=== PATIENT | female | born 1990 | race American Indian/Alaskan Native ===

== ENCOUNTER 2017-07-15 19:57 | Observation (INO) | payer OTHER ==
--- NOTE | 2017-07-15 20:55 | ED PDOC ---
Arrival/HPI - History of Present Illness Time/Duration: 1 week Symptom Onset: Gradual Symptom Course: Worsening Activities at Onset: Light <Kaila Bui - Last Filed: 07/16/17 19:14> <ShayleeNimaHernanmu - Last Filed: 07/17/17 11:35> - General Chief Complaint: Syncope Time Seen by Provider: 07/15/17 20:54 - History of Present Illness Narrative History of Present Illness (Text): This is a 27 year old female with a Past medical history of Lupus and Asthma who presents complaining of dizziness and lightheadedness x 1 week. Patient cannot identify and inciting factors that could have caused the dizziness. She denies any trauma. Her dizziness has been getting progressively worse over the week. It is aggravated by physical activity and relieved by staying completely still and breathing. Patient hasn't used any modalities to control the dizziness. The dizziness is associated with seeing white spots, blurry vision, headaches and orbital pressure. She denies any tinnitus, ear pressure, ear discharge, recent URI. Patient also complains of heavy bleeding for the past 3 months. In the past 3 months her menstrual cramping has worsened. Her periods normally last 3-4 days and now last 5-7 days. FDLMP is Jun.13. Of note, patient recently diagnosed with bacterial vaginosis on 2016 which she was prescribed flagyl. She had a bad reaction to flagyl and had to stop it. She was then diagnosed with cystitis on the 2016. She was prescribed cephalaxin and had an adverse reaction (face swelling). She was then switched to Amoxicillin, she finished the regiment on 07/12/17. ROS POSITIVES: Headache, Dizziness, Lightheadedness, blurry vision, aura, b/l orbital pressure, mennorhagia, non-bloody/bilious vomiting NEGATIVES: Tinnitus, ear pressure, recent URI, chest pain, palpitations, shortness of breath, abdominal pain, changes in bowel habits or urinary symptoms. PMHx: Lupus, Asthma, Leukopenia PSHx: Denies Allergies: cephalaxin, clindamycin, ibuprofen, shellfish derived, flagyl. Social: Denies tobacco, alcohol, or illicit drug use. FamHx: Grandmother - Breast CA Meds: None (Kaila Bui) Pt was formerly on plaquenil, but has been noncompliant since she moved from [place], and desires beatrice be plugged back with a new rheutaologist/global security architect here locally. 07/15/17 23:48 (Rickey June) Past Medical History - Provider Review Nursing Documentation Reviewed: Yes - Pulmonary Hx Asthma: Yes - Endocrine/Metabolic Hx Systemic Lupus Erythematosus: Yes - Psychiatric Hx Substance Use: No - Anesthesia Hx Anesthesia: No Hx Anesthesia Reactions: No Hx Malignant Hyperthermia: No <Kaila Bui - Last Filed: 07/16/17 19:14> Family/Social History - Physician Review Nursing Documentation Reviewed: Yes Family/Social History: No Known Family HX Smoking Status: Never Smoked Hx Alcohol Use: No Hx Substance Use: No <Kaila Bui - Last Filed: 07/16/17 19:14> Allergies/Home Meds <Kaila Bui - Last Filed: 07/16/17 19:14> <Rickey June - Last Filed: 07/17/17 11:35> Allergies/Adverse Reactions: Allergies clindamycin Allergy (Verified 07/15/17 20:19) ANAPHYLAXIS ibuprofen Allergy (Verified 07/15/17 20:19) ANAPHYLAXIS metronidazole Allergy (Verified 07/16/17 04:52) SWELLING shellfish derived Allergy (Verified 07/15/17 20:19) ANAPHYLAXIS Home Medications: Home Meds Medication Instructions Recorded Confirmed No Known Home Med 07/15/17 07/15/17 Review of Systems - Physician Review All systems were reviewed & negative as marked: Yes (As per HPI) - Review of Systems Respiratory: Normal. absent: SOB Cardiovascular: Normal. absent: Chest Pain <Kaila Bui - Last Filed: 07/16/17 19:14> Physical Exam Vital Signs Reviewed: Yes Temperature: Afebrile Blood Pressure: Normal Pulse: Regular Respiratory Rate: Normal Appearance: Positive for: Ill-Appearing Pain Distress: None Mental Status: Positive for: Alert and Oriented X 3 - Systems Exam Head: Present: Atraumatic, Normocephalic, Other (No facial tenderness ). No: Tenderness, Contusion, Swelling, Ecchymosis, Abrasion, Laceration Pupils: Present: PERRL Extroacular Muscles: Present: EOMI Conjunctiva: Present: Normal. No: Injected, Icteric Ears: Present: Normal, NORMAL TM, Normal Canal. No: Erythema Mouth: Present: Moist Mucous Membranes Pharnyx: Present: Normal Nose (External): Present: Atraumatic Neck: Present: Normal Range of Motion. No: Meningeal Signs, JVD, Lymphadenopathy Respiratory/Chest: Present: Clear to Auscultation. No: Respiratory Distress, Wheezes, Rales, Rhonchi Cardiovascular: Present: Regular Rate and Rhythm, Normal S1, S2. No: Murmurs Abdomen: Present: Normal Bowel Sounds. No: Tenderness, Distention, Rebound, Guarding, Mass/Organomegaly Upper Extremity: Present: Normal Inspection Lower Extremity: Present: Normal Inspection Neurological: Present: GCS=15, CN II-XII Intact, Speech Normal, Other (Polk Hallpike maneuver NEGATIVE) Skin: Present: Warm, Dry, Other (Multiple Tattoos ) Lymphatic: No: Cervical Adenopathy Psychiatric: Present: Alert, Oriented x 3, Normal Mood <Kaila Bui - Last Filed: 07/16/17 19:14> Vital Signs Temp Pulse Resp BP Pulse Ox 07/16/17 01:00 98.3 F 70 19 108/82 100 07/15/17 23:00 98.3 F 87 17 111/82 100 07/15/17 21:58 98.2 F 80 17 120/82 100 07/15/17 19:58 99.3 F 75 18 114/81 100 Medical Decision Making - Lab Interpretations I have reviewed the lab results: Yes - EKG Interpretation Interpreted by ED Physician: Yes <Kaila Bui - Last Filed: 07/16/17 19:14> <Rickey June - Last Filed: 07/17/17 11:35> ED Course and Treatment: 27 year old female with Past medical history of Lupus, Asthma, and Leukopenia who presents with dizziness x 1 week. --CBC/CMP --Urinalysis --Urine Culture --NS Bolus --EKG --Orthostatic Vital signs Reassessment --CBC WBC-2.2 (Chronic) HgB - 11.7 --CMP - WNL --Urinalysis - Trace Ketones and 1.0 Urobilinogen --EKG - NSR w/ sinus arrhythmia and low Voltage QRS --Orthostatics: -Layin/71 -Sittin/73 -Standin/65 (Adibe,Raleke) pulses were never elevated past 20 bpm differential with standing, s/p ivf her dizziness is relieved however , her headache remains. Her headache is somwhat more left sided , more prominent around her eyes, associated with photophonophobia, and is familiar in its character. , and has been ongoing for days episodic in its intensity and no otc rx has been attmepted. Of note pt had to be shaken awoke in a taxi yesterday after Pt has been working all week with these symptoms of headache and dizziness. serial neurological exams are benign and without focality pt will be given a trial of reglan/benadryl and tylenol as weoll as more ivf and then reassessed for analgesic effect, and a head ct will be obtained . . 07/15/17 23:50 07/16/17 00:20 (Rickey June) - Lab Interpretations Microbiology Results: Microbiology Results 07/15/17 20:30 Urine Urine Culture - Final Gram Positive Cocci Lab Results: 07/15/17 20:30 07/15/17 20:30 Lab Results 07/15/17 20:30: Sodium 140, Potassium 3.9, Chloride 103, Carbon Dioxide 29, Anion Gap 12, BUN 16, Creatinine 0.9, Est GFR ( Amer) > 60, Est GFR (Non- Af Amer) > 60, Random Glucose 92, Calcium 9.2, Total Bilirubin 0.5, AST 29, ALT 17, Alkaline Phosphatase 47, Total Protein 7.9, Albumin 4.2, Globulin 3.7, Albumin/Globulin Ratio 1.2 07/15/17 20:30: Urine Color Yellow, Urine Appearance Clear, Urine pH 6.5, Ur Specific Driscoll 1.020, Urine Protein Negative, Urine Glucose (UA) Negative, Urine Ketones Trace H, Urine Blood Negative, Urine Nitrate Negative, Urine Bilirubin Negative, Urine Urobilinogen 1.0 H, Ur Leukocyte Esterase Negative 07/15/17 20:30: WBC 2.2 L*, RBC 4.17, Hgb 11.7 L, Hct 35.5 L, MCV 85.1, MCH 28.1 , MCHC 33.0, RDW 13.5, Plt Count 165, MPV 11.5 H, Gran % 26.5 L, Lymph % (Auto) 56.3 H, Major % (Auto) 14.9 H, Eos % (Auto) 1.8, Baso % (Auto) 0.5, Gran # 0.59 L , Lymph # 1.3, Major # 0.3, Eos # 0.0, Baso # 0.01 - RAD Interpretation Radiology Orders: 07/16/17 00:10 HEAD W/O CONTRAST [CT] Stat - Medication Orders Current Medication Orders: Discontinued Medications Acetaminophen (Tylenol 325mg Tab) 650 mg PO STAT STA Stop: 07/15/17 23:12 Last Admin: 07/15/17 23:45 Dose: 650 mg MAR Pain/Vitals Document 07/15/17 23:45 AB (Rec: 07/15/17 23:47 [id number] Pain Reassessment Is This A Pain ReAssessment? Yes Sleep Is patient sleeping during reassessment? No Presence of Pain Presence of Pain Yes Pain Scale Used Pain Scale Used Numeric Location Upper or Lower Upper Pain Location Body Office Systems Technology Instructor Description Constant Intensity 4 Scale Used Numeric Acetaminophen (Tylenol 325mg Tab) 650 mg PO Q6H PRN PRN Reason: Pain, Mild (1-3) Acetaminophen/Butalbital/Caffeine (Fioricet) 1 tab PO Q6H PRN PRN Reason: acute onset of headache Diphenhydramine HCl (Benadryl) 25 mg IVP STAT STA Stop: 07/15/17 23:18 Last Admin: 07/15/17 23:47 Dose: 25 mg IVP Administration Document 07/15/17 23:47 AB (Rec: 07/15/17 23:47 [id number] Charges for Administration # of IVP Administrations 1 Sodium Chloride (Sodium Chloride 0.9%) 1,000 mls @ 999 mls/hr IV .Q1H1M STA Stop: 07/15/17 22:31 Last Admin: 07/15/17 21:42 Dose: 999 mls/hr eMAR Start Stop Document 07/15/17 21:42 AB (Rec: 07/15/17 21:42 [id number] Intravenous Solution Start Date 07/15/17 Start Time 21:42 End Date 07/15/17 End time 22:42 Total Infusion Time 60 Metoclopramide HCl 20 mg/ (Sodium Chloride) 54 mls @ 108 mls/hr IVPB STAT STA Stop: 07/15/17 23:55 Last Admin: 07/15/17 23:47 Dose: 108 mls/hr eMAR Start Stop Document 07/15/17 23:47 AB (Rec: 07/15/17 23:47 AB [id number]) Intravenous Solution Start Date 07/15/17 Start Time 23:47 End Date 07/15/17 Sodium Chloride (Sodium Chloride 0.9%) 1,000 mls @ 100 mls/hr IV .Q10H STA Stop: 07/16/17 10:24 Last Admin: 07/16/17 00:54 Dose: 100 mls/hr eMAR Start Stop Document 07/16/17 00:54 AB (Rec: 07/16/17 00:54 AB [id number]) Intravenous Solution Start Date 07/16/17 Start Time 00:54 - PA / [employer] / Resident Statement / has reviewed & agrees with the documentation as recorded. <Rickey June - Last Filed: 07/17/17 11:35> Disposition/Present on Arrival - Present on Arrival Any Indicators Present on Arrival: No History of DVT/PE: No History of Uncontrolled Diabetes: No Urinary Catheter: No History of Decub. Ulcer: No History Surgical Site Infection Following: None - Disposition Have Diagnosis and Disposition been Completed?: Yes Disposition Time: 19:15 <Kaila Bui - Last Filed: 07/16/17 19:14> <Rickey June - Last Filed: 07/17/17 11:35> - Disposition Diagnosis: Migraine Disposition: HOSPITALIZED Condition: STABLE
[2017-07-15] MEDS ORDERED: Sodium Chloride 0.9% 1,000 ML IV STA (21:31)
[2017-07-15 21:42] LABS: PH,URINE 6.5 (4.7-8.0); URINE BILIRUBIN NEGATIVE (NEGATIVE); URINE BLOOD NEGATIVE (NEGATIVE); URINE GLUCOSE (UA) NEGATIVE (NEGATIVE); URINE KETONE TRACE mg/dL (NEGATIVE); URINE LEUKOCYTE ESTERASE NEGATIVE Leu/uL (NEGATIVE); URINE PROTEIN NEGATIVE mg/dL (<30 mg/dL)
[2017-07-15 21:44] LABS: URINE APPEARANCE CLEAR (CLEAR); URINE COLOR YELLOW (YELLOW)
[2017-07-15 21:51] LABS: BASO # 0.01 K/mm3 (0.0-2.0); BASO % 0.5 % (0.0-3.0); EOS % 1.8 % (1.5-5.0); GRAN # 0.59 (1.4-6.5); GRAN % 26.5 % (50.0-68.0); HEMATOCRIT 35.5 % (36.0-48.0); LYMPH # 1.3 (1.2-3.4); LYMPH % 56.3 % (22.0-35.0); MEAN CELL VOLUME 85.1 fl (80.0-105.0); MEAN CORPUSCULAR HEMOGLOBIN 28.1 pg (25.0-35.0); MEAN PLATELET VOLUME 11.5 fl (7.0-11.0); MONO # 0.3 (0.1-0.6); MONO % 14.9 % (1.0-6.0); RED CELL DISTRIBUTION WIDTH 13.5 % (11.5-14.5)
[2017-07-15 21:58] LABS: ALB/GLOB RATIO 1.2 (1.1-1.8); ALKALINE PHOSPHATASE 47 U/L (38-126); ALT/SGPT 17 U/L (7-56); AST/SGOT 29 U/L (14-36); BILIRUBIN,TOTAL 0.5 mg/dL (0.2-1.3); BLOOD UREA NITROGEN 16 mg/dL (7-21); CALCIUM 9.2 mg/dL (8.4-10.5); CARBON DIOXIDE 29 mmol/L (21-33); CHLORIDE 103 mmol/L (98-107); GFR AFRICAN-AMERICAN > 60; GLUCOSE,RANDOM 92 mg/dL (70-110); POTASSIUM 3.9 mmol/L (3.6-5.0); SODIUM 140 mmol/L (132-148); TOTAL PROTEIN 7.9 g/dL (5.8-8.3); WHITE BLOOD COUNT 2.2 10^3/ul (4.5-11.0)
[2017-07-15] MEDS ORDERED: DiphenhydrAMINE 50 mg/ml Inj IVP STA (23:17)
[2017-07-16] MEDS ORDERED: Sodium Chloride 0.9% 1,000 ML IV STA (00:25)
--- NOTE | 2017-07-16 00:52 | CT ---
EXAM: CT Head Without Intravenous Contrast EXAM DATE/TIME: 07/16/2017 12:10 AM CLINICAL HISTORY: 27 years old, female; Pain; Headache; Migraine; Aura effect not specified; Additional info: Mirgainaious headaceh x 1 wk, HX of lupus TECHNIQUE: Axial computed tomography images of the head/brain without intravenous contrast. All CT scans at this facility use one or more dose reduction techniques, viz.: automated exposure control; ma/kV adjustment per patient size (including targeted exams where dose is matched to indication; i.e. head); or iterative reconstruction technique. COMPARISON: There are no prior studies for comparison. FINDINGS: Brain: Ventricles are normal in size and configuration. There is no midline shift. There are no intra-axial or extra-axial mass lesions or areas of hemorrhage. There are no abnormal fluid collections. Rdz-white differentiation is maintained. Ventricles: See above. Bones/joints: Bones: Cranial vault is intact. Soft tissues: unremarkable Sinuses: There is no acute sinusitis. Ears and mastoids: Middle ears and mastoids are unremarkable Orbits: Orbital contents are unremarkable. IMPRESSION: No acute intracranial abnormality
[2017-07-16 08:13] VITALS: O2SAT 99
--- NOTE | 2017-07-16 08:59 | CP.PCM.CON ---
<Ariana Chowdary - Last Filed: 07/16/17 15:43> History of Present Illness - History of Present Illness History of Present Illness: PGY-2 Neurology consult note for Dr. Matute's service 27 year old female with a Past medical history of Lupus and Asthma who presents complaining of lightheadedness and headache for 1 week. Patient states that about 2 weeks ago she was diagnosed with bacterial vaginosis and was prescribed flagyl however she developed a headache, along with facial swelling. She stopped taking the medication but the headache continued. She describes it as a pounding headache, bilaterally. It is associated with blurry vision with white spots, nausea with 1 episode of nonbloody emesis, and lightheadedness. She denies any trauma. It is aggravated by physical activity and relieved by staying completely still and breathing. Patient states she tried taking Tylenol at home and it had no effect. She denies any previous episodes similar to this one. She denies any tinnitus, ear pressure, ear discharge, recent URI. Patient states the headache has improved significantly since receiving medication in the ED. PMH: Lupus, Asthma, Leukopenia PSH: Denies Allergies: cephalaxin, clindamycin, ibuprofen, shellfish derived, flagyl. Social history: Denies tobacco, occasional alcohol use, denies illicit drug use. Family history: Grandmother - Breast CA Meds: None Review of Systems - Review of Systems All systems: reviewed and no additional remarkable complaints except (as stated in HPI) Past Patient History - Past Social History Smoking Status: Never Smoked - PULMONARY Hx Asthma: Yes - ENDOCRINE/METABOLIC Hx Systemic Lupus Erythematosus: Yes - MUSCULOSKELETAL/RHEUMATOLOGICAL Hx Falls: No - PSYCHIATRIC Hx Substance Use: No - SURGICAL HISTORY Hx Surgeries: Yes (tooth extraction) Other/Comment: anesthesia - ANESTHESIA Hx Anesthesia: No Hx Anesthesia Reactions: No Hx Malignant Hyperthermia: No Meds Allergies/Adverse Reactions: Allergies Allergy/AdvReac Type Severity Reaction Status Date / Time clindamycin Allergy ANAPHYLAXIS Verified 07/15/17 20:19 ibuprofen Allergy ANAPHYLAXIS Verified 07/15/17 20:19 metronidazole Allergy SWELLING Verified 07/16/17 04:52 shellfish derived Allergy ANAPHYLAXIS Verified 07/15/17 20:19 - Medications Medications: Current Medications Acetaminophen (Tylenol 325mg Tab) 650 mg PO Q6H PRN PRN Reason: Pain, Mild (1-3) Sodium Chloride (Sodium Chloride 0.9%) 1,000 mls @ 100 mls/hr IV .Q10H STA Stop: 07/16/17 10:24 Last Admin: 07/16/17 00:54 Dose: 100 mls/hr Physical Exam - Constitutional Appears: Well, No Acute Distress - Head Exam Head Exam: ATRAUMATIC, NORMAL INSPECTION, NORMOCEPHALIC - Eye Exam Eye Exam: EOMI, Normal appearance - ENT Exam ENT Exam: Mucous Membranes Moist - Respiratory Exam Respiratory Exam: Clear to Auscultation Bilateral, NORMAL BREATHING PATTERN. absent: Rales, Rhonchi, Wheezes, Respiratory Distress - Cardiovascular Exam Cardiovascular Exam: REGULAR RHYTHM, +S1, +S2. absent: Tachycardia, Systolic Murmur - GI/Abdominal Exam GI & Abdominal Exam: Normal Bowel Sounds, Soft - Extremities Exam Extremities exam: Positive for: normal inspection - Back Exam Back exam: NORMAL INSPECTION - Neurological Exam Neurological exam: Alert, CN II-XII Intact, Oriented x3, Reflexes Normal - Skin Skin Exam: Dry, Intact, Normal Color, Warm Results - Vital Signs Recent Vital Signs: Last Vital Signs Temp 98.9 F 07/16/17 07:30 Pulse 69 07/16/17 07:30 Resp 20 07/16/17 07:30 BP 99/47 L 07/16/17 07:30 Pulse Ox 99 07/16/17 07:30 - Labs Result Diagrams: 07/15/17 20:30 07/15/17 20:30 Labs: Laboratory Results - last 24 hr 07/16/17 00:55 Troponin I < 0.01 Assessment & Plan - Assessment and Plan (Free Text) Assessment: 27 year old female with a Past medical history of Lupus and Asthma who presents complaining of lightheadedness and headache due to migraine with aura - CT head negative - MRI normal - fioricet1 tab q6 upon acute onset of headache - recommend gabapentin 200mg HS for migraine prevention - patient is to follow up neurology outpatient Thank you for the consult, please reconsult if needed case reviewed and discussed with attending <Wisam Matute - Last Filed: 07/16/17 23:06> Meds - Medications Medications: Current Medications Acetaminophen (Tylenol 325mg Tab) 650 mg PO Q6H PRN PRN Reason: Pain, Mild (1-3) Acetaminophen/Butalbital/Caffeine (Fioricet) 1 tab PO Q6H PRN PRN Reason: acute onset of headache Results - Vital Signs Recent Vital Signs: Last Vital Signs Temp 98.9 F 07/16/17 07:30 Pulse 69 07/16/17 07:30 Resp 20 07/16/17 07:30 BP 99/47 L 07/16/17 07:30 Pulse Ox 99 07/16/17 07:30 - Labs Result Diagrams: 07/15/17 20:30 07/15/17 20:30 Labs: Laboratory Results - last 24 hr 07/16/17 00:55 Troponin I < 0.01 Attending/Attestation - Attestation I have personally seen and examined this patient.: Yes I have fully participated in the care of the patient.: Yes I have reviewed all pertinent clinical information: Yes
[2017-07-16] MEDS ORDERED: Apap-Butalbital-Caffeine 325-50-40mg Tab PO PRN (10:43)
--- NOTE | 2017-07-16 12:25 | MRI ---
PROCEDURE: MRI BRAIN WITHOUT CONTRAST HISTORY: headache COMPARISON: None. TECHNIQUE: Multiplanar, multisequence MR images of the brain were obtained without intravenous contrast enhancement. FINDINGS: HEMORRHAGE: None DWI: No evidence of an acute or early subacute infarction. BRAIN PARENCHYMA: No mass effect or edema. No atrophy or chronic microvascular ischemic changes. VENTRICLES: Unremarkable. No hydrocephalus. CRANIUM: Unremarkable. ORBITS: Grossly unremarkable. PARANASAL SINUSES/MASTOIDS: Clear VASCULAR SYSTEM: Skull base flow voids intact. OTHER FINDINGS: None. IMPRESSION: Unremarkable non contrast enhanced MRI of the brain.
--- NOTE | 2017-07-16 16:46 | CARD ---
APPROVED REPORT EKG Measurement Heart [id number] <Conclusion> Normal sinus rhythm with sinus arrhythmia Low voltage QRS Cannot rule out Anterior infarct, age undetermined Abnormal ECG
--- NOTE | 2017-07-17 00:57 | CP.PCM.HP ---
<Gabrielle Zamorano - Last Filed: 07/17/17 00:54> History of Present Illness - History of Present Illness History of Present Illness: Pt seen on 07/16/17 @ 10:30 am. 27 yr female w/ history of SLE and asthma. [place] [facility] [place] following antibiotic treatment for bacterial vaginosis. She denies any vision changes, numbness/tingling, SOB, chest pain, diarrhea, constipation or urinary frequency. No distress noted. Present on Admission - Present on Admission Any Indicators Present on Admission: No History of DVT/PE: No History of Uncontrolled Diabetes: No Urinary Catheter: No Decubitus Ulcer Present: No Review of Systems - Constitutional Constitutional: As Per HPI. absent: Anorexia, Chills, Daytime Sleepiness, Excessive Sweating, Fatigue, Fever, Frequent Falls, Headache, Increased Appetite , Lethargy, Malaise, Night Sweats, Snoring, Sleep Apnea, Weight Gain, Weight Loss, Weakness, Other - EENT Eyes: As Per HPI. absent: Blind Spots, Blurred Vision, Change in Vision, Decreased Night Vision, Diplopia, Discharge, Dry Eye, Exophthalmos, Floaters, Irritation, Itchy Eyes, Loss of Peripheral Vision, Pain, Photophobia, Requires Corrective Lenses, Sees Flashes, Spots in Vision, Tunnel Vision, Other Visual Disturbances, Loss of Vision, Other Ears: As Per HPI. absent: Decreased Hearing, Ear Discharge, Ear Pain, Tinnitus , Abnormal Hearing, Disequilibrium, Dizziness, Other Nose/Mouth/Throat: As Per HPI. absent: Epistaxis, Nasal Congestion, Nasal Discharge, Nasal Obstruction, Nasal Trauma, Nose Pain, Post Nasal Drip, Sinus Pain, Sinus Pressure, Bleeding Gums, Change in Voice, Dental Pain, Dry Mouth, Dysphagia, Halitosis, Hoarsness, Lip Swelling, Mouth Lesions, Mouth Pain, Odynophagia, Sore Throat, Throat Swelling, Tongue Swelling, Facial Pain, Neck Pain, Neck Mass, Other - Cardiovascular Cardiovascular: As Per HPI. absent: Acrocyanosis, Chest Pain, Chest Pain at Rest, Chest Pain with Activity, Claudication, Diaphoresis, Dyspnea, Dyspnea on Exertion, Edema, Irregular Heart Rhythm, Pain Radiating to Arm/Neck/Jaw, Leg Edema, Leg Ulcers, Lightheadedness, Orthopnea, Palpitations, Paroxysmal Nocturnal Dyspnea, Pedal Edema, Radiating Pain, Rapid Heart Rate, Slow Heart Rate, Syncope, Other - Respiratory Respiratory: As Per HPI. absent: Cough, Dyspnea, Hemoptysis, Dyspnea on Exertion, Wheezing, Snoring, Stridor, Pain on Inspiration, Chest Congestion, Excessive Mucous Production, Change in Mucous Color, Pain with Coughing, Other - Gastrointestinal Gastrointestinal: As Per HPI. absent: Abdominal Pain, Belching, Bloating, Change in Bowel Habits, Change in Stool Character, Coffee Ground Emesis, Constipation, Cramping, Diarrhea, Dyspepsia, Dysphagia, Early Satiety, Excessive Flatus, Fecal Incontinence, Heartburn, Hematemesis, Hematochezia, Loose Stools, Melena, Nausea, Odynophagia, Temesmus, Vomiting, Other - Genitourinary Genitourinary: As Per HPI. absent: Change in Urinary Stream, Difficulty Urinating, Dysuria, Flank Pain, Hematuria, Pyuria, Nocturia, Urinary Incontinence, Urinary Frequency, Urinary Hesitance, Urinary Urgency, Voiding Freq/Small Amts, Freq UTI, Hx Renal/Bladder Calculi, Hx /Renal Surgery, Bladder Distension, Other - Reproductive: Female Additional comments: LMP 06/13/15, using NuvaRing contraceptive. - Menstruation Menstruation: Normal Menses. absent: As Per HPI, Amenorrhea, Amenorrhea/ Control, Currently Menstual, Cycle <21 Days, Cycle >35 Days, Cycle Variable, Menses 1-7 Days, Menses >/= 8 Days, Menses Variable, Cycle > 4 Weeks Between, No Menses for 6 Months, Heavy Menses, Light Menses, Spotting Between Cycles, S/ P Hysterectomy, Menopausal, Post Menopausal, Premenarche, Abnormal Vaginal Bleeding, Dysmenorrhea, Other - Musculoskeletal Musculoskeletal: As Per HPI. absent: Abnormal Gait, Arthralgias, Atrophy, Back Pain, Deformity, Joint Swelling, Limited Range of Motion, Loss of Height, Muscle Cramps, Muscle Weakness, Myalgias, Neck Pain, Numbness, Radiating Pain into Limb, Stiffness, Tingling, Other - Integumentary Integumentary: As Per HPI. absent: Acne, Alopecia, Bleeding Lesions, Change in Hair, Change in Nails, Change in Pigmentation, Changing Lesions, Dry Skin, Erythema, Furuncle, Hirsutism, Lesions, New Lesions, Non-Healing Lesions, Photosensitivity, Pruritus, Rash, Skin Pain, Skin Ulcer, Sores, Striae, Swelling , Unusual Bruising, Wounds, Jaundice, Other - Neurological Neurological: As Per HPI. absent: Abnormal Gait, Abnormal Hearing, Abnormal Movements, Abnormal Speech, Behavioral Changes, Burning Sensations, Confusion, Convulsions, Disequilibrium, Dizziness, Numbness, Focal Weakness, Frequent Falls , Headaches, Lack of Coordination, Loss of Vision, Memory Loss, Paresthesias, Radicular Pain, Restless Legs, Sensory Deficit, Syncope, Tingling, Tremor, Vertigo, Weakness, Other Visual Disturbances, Other - Psychiatric Psychiatric: As Per HPI. absent: Abnormal Sleep Pattern, Anhedonia, Anxiety, Auditory Hallucinations, Behavioral Changes, Change in Appetite, Change in Libido, Confusion, Depression, Difficulty Concentrating, Hallucinations, Homicidal Ideation, Hopelessness, Irritability, Memory Loss, Mood Swings, Panic Attacks, Paranoia, Suicidal Ideation, Visual Hallucinations, Tactile Hallucinations, Other - Endocrine Endocrine: As Per HPI. absent: Change in Body Appearance, Change in Libido, Cold Intolorance, Deepening of Voice, Excessive Sweating, Fatigue, Flushing, Heat Intolorance, Increase in Ring/Shoe/Hat Size, Palpitations, Polydipsia, Polyphagia, Polyuria, Other - Hematologic/Lymphatic Hematologic: As Per HPI. absent: Easy Bleeding, Easy Bruising, Lymphadenopathy , Other Past Patient History - Past Social History Smoking Status: Never Smoked Alcohol: None Drugs: Denies - CARDIAC Hx Cardiac Disorders: No - PULMONARY Hx Asthma: Yes - NEUROLOGICAL Hx Neurological Disorder: No - HEENT Hx HEENT Problems: No - RENAL Hx Chronic Kidney Disease: No - ENDOCRINE/METABOLIC Hx Systemic Lupus Erythematosus: Yes - HEMATOLOGICAL/ONCOLOGICAL Hx Blood Disorders: No - INTEGUMENTARY Hx Dermatological Problems: No - MUSCULOSKELETAL/RHEUMATOLOGICAL Hx Musculoskeletal Disorders: No Hx Falls: No - GASTROINTESTINAL Hx Gastrointestinal Disorders: No - GENITOURINARY/GYNECOLOGICAL Hx Genitourinary Disorders: No - PSYCHIATRIC Hx Psychophysiologic Disorder: No Hx Substance Use: No - SURGICAL HISTORY Hx Surgeries: Yes (tooth extraction) Other/Comment: anesthesia - ANESTHESIA Hx Anesthesia: No Hx Anesthesia Reactions: No Hx Malignant Hyperthermia: No Meds Allergies/Adverse Reactions: Allergies Allergy/AdvReac Type Severity Reaction Status Date / Time clindamycin Allergy ANAPHYLAXIS Verified 07/15/17 20:19 ibuprofen Allergy ANAPHYLAXIS Verified 07/15/17 20:19 metronidazole Allergy SWELLING Verified 07/16/17 04:52 shellfish derived Allergy ANAPHYLAXIS Verified 07/15/17 20:19 Physical Exam - Constitutional Appears: Well - Head Exam Head Exam: ATRAUMATIC, NORMAL INSPECTION, NORMOCEPHALIC - Eye Exam Eye Exam: EOMI, Normal appearance, PERRL Pupil Exam: NORMAL ACCOMODATION, PERRL - ENT Exam ENT Exam: Mucous Membranes Moist, Normal Exam - Neck Exam Neck exam: Positive for: Normal Inspection - Respiratory Exam Respiratory Exam: Clear to Auscultation Bilateral, NORMAL BREATHING PATTERN - Cardiovascular Exam Cardiovascular Exam: REGULAR RHYTHM - GI/Abdominal Exam GI & Abdominal Exam: Normal Bowel Sounds, Soft. absent: Tenderness - Rectal Exam Rectal Exam: NORMAL INSPECTION - Exam Exam: Circumcision, NORMAL INSPECTION External exam: NORMAL EXTERNAL EXAM Speculum exam: NORMAL SPECULUM EXAM Bimanual exam: NORMAL BIMANUAL EXAM - Extremities Exam Extremities exam: Positive for: normal inspection - Back Exam Back exam: NORMAL INSPECTION - Neurological Exam Neurological exam: Alert, CN II-XII Intact, Normal Gait, Oriented x3, Reflexes Normal - Psychiatric Exam Psychiatric exam: Normal Affect, Normal Mood - Skin Skin Exam: Dry, Intact, Normal Color, Warm Results - Vital Signs Recent Vital Signs: Last Vital Signs Temp 98.9 F 07/16/17 07:30 Pulse 69 07/16/17 07:30 Resp 20 07/16/17 07:30 BP 99/47 L 07/16/17 07:30 Pulse Ox 99 07/16/17 07:30 - Labs Result Diagrams: 07/15/17 20:30 07/15/17 20:30 Labs: Laboratory Results - last 24 hr 07/16/17 00:55 Troponin I < 0.01 Assessment & Plan (1) Anemia Status: Acute (2) Leukopenia Status: Acute (3) Migraine Status: Acute (4) SLE (systemic lupus erythematosus) Status: Chronic - Assessment and Plan (Free Text) Plan: Stable. Condition improved. Consults: Neurology = Dr. Matute = gabapentin for headache prevention, fioricet for acute headache. Reviewed: MRI brain = (-) WNL Head CT = (-) WNL ECG = (+) NSR w/ SA, low voltage QRS, cannot r/o anterior infarct, abn. <Sharon Villeda Last Filed: 07/17/17 09:33> Results - Vital Signs Recent Vital Signs: Last Vital Signs Temp 98.4 F 07/17/17 07:30 Pulse 84 07/17/17 07:30 Resp 18 07/17/17 07:30 BP 111/64 07/17/17 07:30 Pulse Ox 99 07/17/17 07:30 - Labs Result Diagrams: 07/15/17 20:30 07/15/17 20:30 Assessment & Plan - Assessment and Plan (Free Text) Plan: pt is seen and examined at bed side , looking comfortable . fernandez is better , neuro is on the case , mri and cat scane noted
--- NOTE | 2017-07-17 05:37 | CON ---
DATE: 07/16/2017 LOCATION: Patient is currently in room 567, bed 1. REASON FOR CONSULTATION: Leukopenia. HISTORY OF PRESENT ILLNESS: This is a 27-year-old female with past medical history of lupus and asthma, was admitted to the emergency room, complaining of lightheadedness and headache for a week. Patient states that 2 weeks ago, she was diagnosed with bacterial vaginosis, prescribed Flagyl; however, she developed a headache along with facial swelling, stopped taking the medication, but the headache continued. She described the pounding headache bilaterally, was associated with blurry vision with white spots, nausea with one episode of nonbloody emesis, and lightheadedness. Denies any history of nausea, aggravated by physical activity and relieved by staying completely still and breathing quietly. Patient states she is just taking Tylenol at home, was not much of. Denies any similar episodes prior to this admission. Denies any tinnitus, ear pressure, ear discharge, recent URI. Patient states that her headache has improved significantly since coming to the emergency room. PAST MEDICAL HISTORY: Significant for asthma and leukopenia. ALLERGIES: PATIENT HAS ALLERGIES TO CLINDAMYCIN, IBUPROFEN, METRONIDAZOLE AND SHELLFISH. SOCIAL HISTORY: Patient denies tobacco. Occasional alcohol use. Denies illicit drug abuse. FAMILY HISTORY: Grandmother had breast cancer. REVIEW OF SYSTEMS: Twelve-system review was done. Patient has no additional complaints except what is mentioned in the HPI. PAST SURGICAL HISTORY: She has had dental extractions as far as surgical history is concerned. MEDICATIONS: Patient's medications were reviewed. She is currently just on Tylenol and IV fluids. PHYSICAL EXAMINATION: VITAL SIGNS: Stable as stated in the chart. T-max is 98.9, pulse is 69, respirations 20, blood pressure 99/47, pulse ox is 99% on room air. HEENT: Head is normocephalic, atraumatic. Conjunctivae pale. Sclerae are anicteric. Pupils are equally reactive to light and accommodation. Examination of the oropharynx reveals no oropharyngeal lesions. Tongue is moist. No fungal infection is noted. No ulcerations are noted. NECK: Supple. There is no adenopathy. No jugular venous distention noted. LUNGS: Clear to percussion and auscultation. No adventitious sounds are heard. CARDIOVASCULAR: Examination of the cardiovascular system reveals PMI to be in the fifth intercostal space. S1 and S2 are normal. No gallop or murmur is heard. ABDOMEN: Soft, nontender. No rebound, rigidity, or guarding is noted. Liver and spleen are not palpable. No other masses are felt. BACK: Examination of the back reveals it to be normal to inspection and palpation. NEUROLOGIC: Higher functions are normal. No focal deficits are noted. SKIN: Dry. Normal skin turgor is noted. No skin lesions are seen. LYMPHATIC: There is no evidence of adenopathy in the neck, axilla, or groin. LABORATORY DATA: Labs are reviewed. White count is 2.2 with a hemoglobin of 11.7, hematocrit of 35, and ANC at this point in time is 0.59. Most of the white cells are lymphocytes consistent with lupus history. Labs are within normal limits. ASSESSMENT NOTES AND PLAN: Patient has leukopenia, most likely related to her lupus. We will check on the activity of the lupus and find out where she has been getting her treatments for lupus prior to her admission to the hospital. We will check with the primary medical doctor as well. In the meantime, I have ordered repeat blood work to check for the activity of the lupus and more importantly trend of the leukopenia, see in which direction we are going. If the leukopenia worsens, then treatment of the underlying lupus may bring the white count up, otherwise, she could benefit from Neupogen-based therapy, especially if she has come down with an infection. If she is asymptomatic, then just staying on precautions with neutropenic diet would be most advantageous till her counts come up a little bit. No other active intervention is recommended at this point from our perspective. We will follow the patient with you and make appropriate recommendations. Patient needs to be managed for acute neurologic issues. She definitely needs to get a rheumatologic assessment for the activity and the treatment and management of her lupus. Time spent with the patient 45 minutes. Nevin Saldivar MD
--- NOTE | 2017-07-17 08:38 | CP.PCM.PN ---
Subjective - Date & Time of Evaluation Date of Evaluation: 07/17/17 Time of Evaluation: 07:00 - Subjective Subjective: Heme/onc progress note for Dr Saldivar's service Patient states the headache has improved, patient has been able to walk to the restroom with no difficulties. Denies cp, sob, n/v/d. Objective - Vital Signs/Intake and Output Vital Signs (last 24 hours): Temp Pulse Resp BP Pulse Ox 98.9 F 69 20 99/47 L 99 07/16/17 07:30 07/16/17 07:30 07/16/17 07:30 07/16/17 07:30 07/16/17 07:30 - Medications Medications: Current Medications Acetaminophen (Tylenol 325mg Tab) 650 mg PO Q6H PRN PRN Reason: Pain, Mild (1-3) Acetaminophen/Butalbital/Caffeine (Fioricet) 1 tab PO Q6H PRN PRN Reason: acute onset of headache - Constitutional Appears: No Acute Distress - Head Exam Head Exam: ATRAUMATIC, NORMAL INSPECTION, NORMOCEPHALIC - Eye Exam Eye Exam: Normal appearance Pupil Exam: NORMAL ACCOMODATION - ENT Exam ENT Exam: Mucous Membranes Moist - Neck Exam Neck Exam: Normal Inspection - Respiratory Exam Respiratory Exam: Clear to Ausculation Bilateral, NORMAL BREATHING PATTERN. absent: Rales, Rhonchi, Wheezes, Respiratory Distress, Stridor - Cardiovascular Exam Cardiovascular Exam: REGULAR RHYTHM, RRR, +S1, +S2. absent: Murmur - GI/Abdominal Exam GI & Abdominal Exam: Soft, Normal Bowel Sounds. absent: Distended, Firm, Guarding, Rigid, Tenderness - Extremities Exam Extremities Exam: Normal Inspection - Back Exam Back Exam: NORMAL INSPECTION - Neurological Exam Neurological Exam: Alert, Awake, Oriented x3 - Psychiatric Exam Psychiatric exam: Normal Affect, Normal Mood - Skin Skin Exam: Dry, Intact, Warm Assessment and Plan - Assessment and Plan (Free Text) Assessment: Patient is a 27 y/o with pmh of asthma and lupus whom presented with headache and dizziness, heme onc is being consulted for possible lupus causing the headache. Patient states she was diagnosed with lupus 3 years ago, was being treated with plaquenil and prednisone at [place], last time she received treatment was about a year ago. Patient stopped following up due to insurance issues. So far MRI and CT head negative. 1) Neutropenia likely due to lupus 2) Normocytic Anemia- stable. 3) Lupus Plan: - Will obtain lupus work up to assess patient's status while patient is in the hospital. - Continue with current medical management - Patient will need rheumatologic referrals as outpatient since we don't have rheum inhouse. - No planned treatment for leukopenia at this time, unless patient is septic. - No hematologic intervention at this time - Thank you for consulting Dr Saldivar. - Patient seen, examined and case discussed with Dr Saldivar.
[2017-07-17 09:08] VITALS: BP 111/64; PULSE 84; RESP 18; TEMP 98.4
--- NOTE | 2017-07-19 00:35 | DS ---
CHIEF COMPLAINT: Lightheadedness. HISTORY OF PRESENT ILLNESS: Ms. Amisha Benedict is a 27-year-old female with history of SLE and asthma, came to [facility] Emergency Room with lightheadedness for one week, following antibiotic treatment for bacterial vaginosis. She denies any itchiness, numbness, tingling, shortness of breath,chest pain, diarrhea, constipation, urinary symptoms and not in any distress. We admitted the patient and we did CAT scan of the head and brain MRI. Seen by Dr. Saldivar for leukopenia and by Dr. Matute for lightheadedness and the patient was cleared, so discharged home on 07/17/2017. PAST MEDICAL HISTORY: History of lupus, asthma, and leukopenia. ALLERGIES: SHE IS ALLERGIC TO CEPHALEXIN, CLINDAMYCIN, IBUPROFEN, SHELLFISH DERIVATIVES, AND FLAGYL. SOCIAL HISTORY: Denied tobacco, alcohol or illicit drug use. FAMILY HISTORY: Grandmother had breast cancer. HOME MEDICATIONS: Reviewed. REVIEW OF SYSTEMS: The patient is seen and examined on the bedside, looking comfortable. No nausea, vomiting or diarrhea. No hematuria. No hematochezia. No swelling of the legs. No chest pain. No palpitations. No headache. No dizziness. PHYSICAL EXAMINATION: VITAL SIGNS: Temperature 98.4, pulse 84, blood pressure 111/64, and respiratory rate 18. HEENT: Head normocephalic and atraumatic. Eyes; PERRLA. Extraocular muscles intact. Conjunctivae are clear. Nose is patent. Mucous membranes moist. NECK: Supple. No carotid bruits. No JVD or thyromegaly. CHEST: Bilaterally symmetrical. HEART: S1 and S2 positive. LUNGS: Clear to auscultation. ABDOMEN: Soft. Bowel sounds present. No organomegaly. EXTREMITIES: No edema. No cyanosis. NEUROLOGIC: The patient is awake and alert. Moving all 4 extremities. No focal deficits. LABORATORY DATA: White blood cells 2.2, hemoglobin 11.7, hematocrit 35.5, and platelets 165. ESR 20. Sodium 140, potassium 3.9, BUN 16, and creatinine is 0.9. Liver function is within normal limits. ASSESSMENT AND PLAN: Ms. Amisha Benedict is a 27-year-old lady with leukopenia, anemia, ketonuria, urobilinogenuria, came with lightheadedness, history of asthma and lupus. Hematology/Oncology is on the case. According to them, may be it is related with possible lupus. According to the patient, she was ever diagnosed with lupus since three years ago and was treated with Plaquenil and prednisone at [place]. 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 She stopped followup due to the insurance issues. Now, we did MRI and CAT scan of the head that is negative. Leukopenia likely due to lupus. Normocytic anemia stable. Lupus, the patient has to followup with [employer]. Lupus workup was done. The patient was feeling better. Oncologist cleared the patient and to be discharged home. Follow up Oncologist and [employer]. We will follow up. Sharon Villeda MD
== END 2017-07-17 11:33 | disposition home or self-care (01) ==
LOC: ED 19:57 → ERH 07-16 00:25 → INTOOBSV 07-16 00:25 → ERH 07-16 02:02 → 5RNO 07-16 02:46
PROVIDERS: ADMIT Internal Medicine; ATTEND Internal Medicine
DX: G43.109 Migraine with aura, not intractable, without status migrainosus (principal); M32.9 Systemic lupus erythematosus, unspecified; J45.909 Unspecified asthma, uncomplicated; D64.9 Anemia, unspecified; D70.9 Neutropenia, unspecified; Z80.3 Family history of malignant neoplasm of breast
CPT/HCPCS: 36415; 70450; 70551; 80053; 81003; 83516; 84484; 85025; 85651; 86038; 86140; 86160; 86235; 86376; 86431; 87086; 93005; 96361; 96374; 96375; 99285; G0378; J1200; J2765; J7040